=== PATIENT | female | born 1965 | race Two or more races ===

== ENCOUNTER 2017-07-12 11:14 | Outpatient (CLI) | payer OTHER | END 2017-07-12 11:25 | disposition home or self-care (01) | LOC: SONOGRAMA 11:14 | DX: E04.1 Nontoxic single thyroid nodule (principal); R10.84 Generalized abdominal pain; E78.2 Mixed hyperlipidemia; R73.01 Impaired fasting glucose; I10 Essential (primary) hypertension; N92.4 Excessive bleeding in the premenopausal period ==

== ENCOUNTER 2020-06-20 22:09 | Emergency (ER) | payer OTHER ==
[~2020-06-20] VITALS: Ht 154.9 cm; Wt 63.5 kg
[2020-06-20] MEDS ORDERED: ATACAND32 MG (22:35)
[2020-06-20] MEDS ORDERED: NORVASC10 MG (22:35)
[2020-06-21] MEDS ORDERED: HEMATOGEN FORT1 EACH PO (03:28)
[2020-06-21] MEDS ORDERED: KETO10TA2 PO (03:28)
== END 2020-06-21 03:36 ==
LOC: ER 22:09
DX: N93.8 Other specified abnormal uterine and vaginal bleeding (principal); N94.4 Primary dysmenorrhea; Z20.828 Contact with and (suspected) exposure to other viral communicable diseases